=== PATIENT | male | born 1975 | race African-American/Black ===

== ENCOUNTER 2024-10-11 05:11 | Inpatient (IN) | payer OTHER, SELFPAY ==
[2024-10-11] MEDS ORDERED: Morphine 4 MG/ML VIAL ONE (05:31)
[2024-10-11] MEDS ORDERED: Ondansetron PF 4 MG/2 ML Vial ONE ×3 (05:31→10:23)
[2024-10-11 05:56] LABS: #Basophils 0.03 10x3/uL (0.0-0.2); %Basophils 0.7 % (0.0-1.0); %Eosinophils 1.8 % (0.0-10.0); %Monocytes 10.6 % (0.0-10.0); %Neutrophils 53.7 % (42.0-75.0); Hematocrit 42.7 % (42.0-52.0); Hemoglobin 15.1 g/dL (14.0-18.0); Mean Corpuscular HGB CONC 35.4 g/dL (32.0-36.0); Mean Corpuscular Hemoglobin 31.1 pg (27.0-31.0); Platelet Count 177 10x3/uL (130-400); RBC Distribution Width 13.5 % (11.5-14.5); Red Blood Cell (RBC) Count 4.85 mill/uL (4.70-6.10)
[2024-10-11 06:09] LABS: ALT (SGPT) Less than 5 U/L (8-55); AST (SGOT) 25 U/L (5-34); Alkaline Phosphatase 74 U/L (40-110); Anion Gap 16 mmol/L (10-20); BUN (Urea Nitrogen) 17 mg/dL (8.9-20.6); Calc. Creatinine Clearance 0 mL/min (70-130); Calcium 9.4 mg/dL (7.8-10.44); Carbon Dioxide 28 mmol/L (22-29); Chloride 100 mmol/L (98-107); Estimated GFR 75; Globulin 3.9 g/dL (2.4-3.5); Glucose 105 mg/dL (70-105); Lipase 28 U/L (8-78); Protein, Total 7.9 g/dL (6.0-8.3); Sodium 140 mmol/L (136-145)
[2024-10-11] MEDS ORDERED: fentaNYL 50 mcg/mL 1 mL Vial ONE (08:31)
[2024-10-11 09:04] LABS: Bacteria/HPF None Seen HPF (None Seen); Bilirubin Negative (Negative); Blood, Urine Negative (Negative); CAUTI Indications for Culture Acute Hematuria; Clarity Clear (Clear); Glucose, Urine (Dipstick) Normal (Negative); Ketone, Urine 40 mg/dL (Negative); Leukocyte Negative Leu/uL (Negative); Nitrite Negative (Negative); Protein, Urine (Dipstick) 10 mg/dL (Neg-Trace); RBC/HPF 0-3 HPF (0-3); Squamous Epithelial 0-3 HPF (0-3); Urobilinogen Normal mg/dL (Less than 2); WBC/HPF 0-3 HPF (0-3); pH, Urine 6.5 (5.0-9.0)
[2024-10-11 09:11] LABS: Specific Gravity, Urine Greater than 1.060 (1.002-1.036); Urine Culture Reflex No No
[2024-10-11] MEDS ORDERED: Famotidine/PF 20 mg/2ml Vial ONE (09:20)
[2024-10-11] MEDS ORDERED: Bisacodyl 5 MG TAB PO PRN (09:50)
[2024-10-11] MEDS ORDERED: traMADol HCl 50 MG TAB PO PRN ×2 (09:50)
[2024-10-11] MEDS ORDERED: Acetaminophen 325 MG TAB PO PRN (09:50)
[2024-10-11] MEDS ORDERED: Lidocaine 2% Viscous Solution 10 ML, Aluminum & Magnesium Hydroxide 30 ML SSW SCH (10:00)
[2024-10-11] MEDS ORDERED: Lidocaine Viscous Sol 2% 15 ml UD Cup ONE (10:23)
[2024-10-11] MEDS ORDERED: Mag-Al 1200 mg/1200 mg/30 ML UDCUP ONE (10:23)
[2024-10-11] MEDS: Sodium Chloride 0.9% 1,000 ML IV SCH ×2 (10:30→16:00)
[2024-10-11] MEDS: Lidocaine 10 ML, Aluminum & Magnesium Hydroxide 30 ML SSW SCH (10:30)
[2024-10-11] MEDS: Ondansetron PF 4 MG/2 ML Vial IVP PRN (10:30)
[2024-10-11 11:13] LABS: Troponin I Less than 0.010 ng/mL (< 0.028)
[2024-10-11] MEDS: Ketorolac Tromethamine 30 MG (1 mL) VIAL IVP SCH (12:48)
[2024-10-11] MEDS: FLU (Fluarix Triv) TS24-25(6MOS UP)/PF 45 MCG/0.5 ML Syringe IM ONE (12:51)
[2024-10-11 14:14] LABS: Influenza A by NAA Not Detected (NotDetected); Influenza B by NAA Not Detected (NotDetected); RSV by NAA Not Detected (NotDetected); SARS-CoV-2 NAA Rapid Test Not Detected (NotDetected)
[2024-10-11] MEDS ORDERED: Iopamidol-370 76% 500 ML MDV (1 ML CHARGE) ONE (14:26)
[2024-10-11] MEDS: Promethazine HCl 25 MG in Sodium Chloride 0.9% 50 ML IVPB PRN (15:59)
[2024-10-11] MEDS: Morphine 4 MG/ML VIAL SLOW IVP PRN (15:59)
[2024-10-11 17:30] LABS: Troponin I 0.011 ng/mL (< 0.028)
[2024-10-11] MEDS ORDERED: Ketorolac Tromethamine 30 MG (1 mL) VIAL IVP PRN (20:00)
[2024-10-12 05:29] LABS: #Basophils Less than 0.03 10x3/uL (0.0-0.2); %Basophils 0.4 % (0.0-1.0); %Eosinophils 4.7 % (0.0-10.0); %Lymphocytes 33.3 % (21.0-51.0); %Monocytes 10.2 % (0.0-10.0); %Neutrophils 51.2 % (42.0-75.0); Hematocrit 35.3 % (42.0-52.0); Hemoglobin 12.1 g/dL (14.0-18.0); Mean Corpuscular HGB CONC 34.3 g/dL (32.0-36.0); Mean Corpuscular Hemoglobin 31.1 pg (27.0-31.0); Mean Corpuscular Volume 90.7 fL (78.0-98.0); Mean Platelet Volume 11.6 fL (7.4-10.4); Platelet Count 142 10x3/uL (130-400); RBC Distribution Width 14.1 % (11.5-14.5); Red Blood Cell (RBC) Count 3.89 mill/uL (4.70-6.10)
[2024-10-12 05:40] LABS: Anion Gap 11 mmol/L (10-20); BUN (Urea Nitrogen) 15 mg/dL (8.9-20.6); Calc. Creatinine Clearance 89 mL/min (70-130); Calcium 8.4 mg/dL (7.8-10.44); Carbon Dioxide 27 mmol/L (22-29); Chloride 108 mmol/L (98-107); Estimated GFR 84; Glucose 83 mg/dL (70-105); Potassium 4.3 mmol/L (3.5-5.1); Sodium 142 mmol/L (136-145)
[2024-10-12] MEDS: Pantoprazole 40 MG VIAL IVP SCH (08:57)
[2024-10-12] MEDS ORDERED: PROPOFOL 20 ML ONE (09:42)
[2024-10-12] MEDS ORDERED: fentaNYL PF 100 MCG/2 ML SYRINGE ONE (09:42)
[2024-10-12] MEDS ORDERED: SUCCINYLCHOLINE/SOD CL,ISO/PF 200 MG/10 ML SYRINGE FS ONE (09:42)
[2024-10-12] MEDS ORDERED: NEOSTIGMINE 3 MG/3 ML SYRINGE ONE (10:00)
[2024-10-12] MEDS ORDERED: Rocuronium Bromide 10 MG/ML (10ML VIAL) ONE (10:00)
[2024-10-12] MEDS ORDERED: Dexamethasone 20 MG/5 ML VIAL ONE (10:00)
[2024-10-12] MEDS ORDERED: Glycopyrrolate 0.2 MG/ML 5 ML SYRINGE ONE (10:00)
[2024-10-12] MEDS ORDERED: SUGAMMADEX SODIUM 200 MG/2 ML VIAL ONE (11:04)
[2024-10-12] MEDS ORDERED: tiZANidine HCl 4 MG TAB PO PRN (14:10)
[2024-10-12] MEDS: Senokot S 8.6-50 MG TAB PO SCH ×2 (15:02→21:44)
[2024-10-13 05:31] LABS: #Basophils Less than 0.03 10x3/uL (0.0-0.2); %Basophils 0.1 % (0.0-1.0); %Eosinophils 1.1 % (0.0-10.0); %Lymphocytes 26.2 % (21.0-51.0); %Monocytes 9.3 % (0.0-10.0); Hematocrit 32.9 % (42.0-52.0); Hemoglobin 11.8 g/dL (14.0-18.0); Mean Corpuscular HGB CONC 35.9 g/dL (32.0-36.0); Mean Corpuscular Hemoglobin 31.7 pg (27.0-31.0); Mean Corpuscular Volume 88.4 fL (78.0-98.0); Mean Platelet Volume 11.9 fL (7.4-10.4); Platelet Count 146 10x3/uL (130-400); RBC Distribution Width 13.7 % (11.5-14.5); Red Blood Cell (RBC) Count 3.72 mill/uL (4.70-6.10)
[2024-10-13 05:48] VITALS: BMI 24.0
[2024-10-13 05:48] LABS: Anion Gap 9 mmol/L (10-20); BUN (Urea Nitrogen) 11 mg/dL (8.9-20.6); Calc. Creatinine Clearance 108 mL/min (70-130); Calcium 8.4 mg/dL (7.8-10.44); Carbon Dioxide 25 mmol/L (22-29); Chloride 104 mmol/L (98-107); Estimated GFR 105; Glucose 92 mg/dL (70-105); Potassium 4.1 mmol/L (3.5-5.1); Sodium 134 mmol/L (136-145)
[2024-10-13 11:19] VITALS: BP 126/66; TEMP 98.4
== END 2024-10-13 14:20 | disposition home or self-care (01) | DRG 395 ==
LOC: ERS 05:11 → ERHOLD 09:45 → OBS 11:22 → OBSVTOIN 10-12 14:10
PROVIDERS: ADMIT Internal Medicine; ATTEND Internal Medicine
PROC: 0DC38ZZ Extirpation of Matter from Lower Esophagus, Via Natural or Artificial Opening Endoscopic (ICD-10-PCS; principal; 2024-10-12)
PROC: 0D738ZZ Dilation of Lower Esophagus, Via Natural or Artificial Opening Endoscopic (ICD-10-PCS; 2024-10-12)
DX: T18.128A Food in esophagus causing other injury, initial encounter (principal); F10.90 Alcohol use, unspecified, uncomplicated; R07.9 Chest pain, unspecified; K58.9 Irritable bowel syndrome, unspecified; R91.1 Solitary pulmonary nodule; K59.03 Drug induced constipation; T40.2X5A Adverse effect of other opioids, initial encounter; W44.F3XA Food entering into or through a natural orifice, initial encounter; Z98.84 Bariatric surgery status
CPT/HCPCS: 0241U; 36415; 74177; 76705; 80048; 80053; 81001; 83605; 83690; 84484; 85025; 87040; 93005; 96374; 96375; 96376; G0378; J1100; J1885; J2272; J2405; J2470; J2550; J2704; J3010; J3490; J7030; Q9967

== ENCOUNTER 2024-10-15 12:27 | Emergency (ER) | payer OTHER ==
[~2024-10-15 12:27] MED LIST: Iopamidol-370 76% 500 ML MDV (1 ML CHARGE) ONE
[2024-10-15] MEDS ORDERED: Dexamethasone 10 MG/ML VIAL ONE (13:27)
[2024-10-15] MEDS ORDERED: Ketorolac Tromethamine 30 MG (1 mL) VIAL ONE (13:27)
[2024-10-15 13:41] LABS: Hematocrit 37.5 % (42.0-52.0); Hemoglobin 13.2 g/dL (14.0-18.0); Mean Corpuscular HGB CONC 35.2 g/dL (32.0-36.0); Mean Corpuscular Hemoglobin 31.2 pg (27.0-31.0); Mean Corpuscular Volume 88.7 fL (78.0-98.0); Mean Platelet Volume 11.6 fL (7.4-10.4); Platelet Count 152 10x3/uL (130-400); RBC Distribution Width 13.7 % (11.5-14.5); Red Blood Cell (RBC) Count 4.23 mill/uL (4.70-6.10)
[2024-10-15 13:53] LABS: ALT (SGPT) Less than 5 U/L (8-55); AST (SGOT) 26 U/L (5-34); Albumin 3.6 g/dL (3.5-5.0); Alkaline Phosphatase 67 U/L (40-110); Anion Gap 13 mmol/L (10-20); BUN (Urea Nitrogen) 12 mg/dL (8.9-20.6); Bilirubin, Total 0.6 mg/dL (0.2-1.2); Calc. Creatinine Clearance 0 mL/min (70-130); Calcium 8.8 mg/dL (7.8-10.44); Carbon Dioxide 31 mmol/L (22-29); Chloride 100 mmol/L (98-107); Estimated GFR 75; Globulin 3.5 g/dL (2.4-3.5); Glucose 74 mg/dL (70-105); Potassium 4.7 mmol/L (3.5-5.1); Protein, Total 7.1 g/dL (6.0-8.3); Sodium 139 mmol/L (136-145)
[2024-10-15 14:16] LABS: Anisocytosis MARKED = >30 cells HPF (0-5); Lymphocytes 21 % (21-51); Macrocytosis MODERATE=16-30 cells HPF (0-5); Monocytes 7 % (0-10); Neutrophil 65 % (42-75); Platelet Adequacy Comment Platelets Normal; Polychromasia SLIGHT = 2-3 cells HPF (0-2); Reactive Lymphocytes 3 % (0-10); Smudge Cells 12.9 %; Target Cells SLIGHT = 2-5 cells HPF (0-1)
== END 2024-10-15 15:13 | disposition home or self-care (01) ==
LOC: ERS 12:27
DX: K11.20 Sialoadenitis, unspecified (principal)
CPT/HCPCS: 70492; 80053; 83605; 85025; 87081; 87430; 96374; 96375; J1100; J1885; Q9967